=== PATIENT | male | born 1980 | race African-American/Black ===

== ENCOUNTER 2018-06-18 15:53 | Inpatient (IN) | payer OTHER ==
[~2018-06-18] VITALS: Ht 180.3 cm; Wt 94.1 kg
[2018-06-18 15:56] VITALS: Ht 180.3 cm; Wt 94.1 kg
[2018-06-18 16:34] LABS: BASOPHIL % 0.2 % (0-2); PLATELET COUNT 240 x10^3mcL (130-400)
[2018-06-18 16:37] LABS: RED CELL DISTRIBUTION WIDTH 15.6 % (11.5-14.5)
[2018-06-18 17:05] LABS: CALCIUM 8.2 mg/dL (8.5-10.1); CARBON DIOXIDE 23.2 mmol/L (21-32); CREATININE SERUM 1.5 mg/dL (0.7-1.3); POTASSIUM SERUM 4.6 mmol/L (3.5-5.1)
[2018-06-18 17:10] LABS: BILIRUBIN TOTAL 2.1 mg/dL (0.20-1.00); TOTAL PROTEIN, SERUM 6.5 g/dL (6.4-8.2)
[2018-06-18 17:12] LABS: ALBUMIN 2.4 g/dL (3.4-5.0)
[2018-06-18 19:33] LABS: FREE T4 1.12 ng/dL (0.76-1.46); FREE THYROXINE INDEX 2.4 ug/dL (1.4-4.5)
[2018-06-18 19:54] LABS: MAGNESIUM 1.8 mg/dL (1.8-2.4); PHOSPHOROUS 3.6 mg/dL (2.5-4.9)
[2018-06-18 19:55] VITALS: BP 131/93
[2018-06-18 19:57] LABS: CHOLESTEROL/HDL RATIO 3.6; T3 TOTAL 0.63 ng/mL
[2018-06-19 06:15] LABS: BASOPHIL % 0.1 % (0-2); PLATELET COUNT 229 x10^3mcL (130-400)
[2018-06-19 06:23] VITALS: BP 133/83
[2018-06-19 06:39] LABS: CARBON DIOXIDE 23.1 mmol/L (21-32); CHLORIDE SERUM 104 mmol/L (98-107); CREATININE SERUM 1.3 mg/dL (0.7-1.3); GFR1 > 60 mL/min; GLUCOSE SERUM 119 mg/dL (74-106); MAGNESIUM 1.8 mg/dL (1.8-2.4); PHOSPHOROUS 2.9 mg/dL (2.5-4.9); POTASSIUM SERUM 4.2 mmol/L (3.5-5.1); SODIUM SERUM 138 mmol/L (136-145)
[2018-06-19 06:55] LABS: RED CELL DISTRIBUTION WIDTH 14.9 % (11.5-14.5)
[2018-06-19 09:56] VITALS: BP 131/96
[2018-06-19 12:30] VITALS: BP 119/81
[2018-06-19 16:29] VITALS: BP 160/100
[2018-06-19 16:51] VITALS: BP 116/76
[2018-06-19 19:48] VITALS: BP 122/86
[2018-06-20 05:41] VITALS: BP 135/105
[2018-06-20 08:05] VITALS: BP 141/95
[2018-06-20 11:45] VITALS: BP 114/92
[2018-06-20 16:43] VITALS: BP 130/97
[2018-06-20 19:55] VITALS: BP 123/87
[2018-06-21 05:26] VITALS: BP 131/97
[2018-06-21 08:36] VITALS: BP 142/104
[2018-06-21 09:53] LABS: CALCIUM 7.9 mg/dL (8.5-10.1); CARBON DIOXIDE 27.6 mmol/L (21-32); CREATININE SERUM 1.4 mg/dL (0.7-1.3); POTASSIUM SERUM 3.8 mmol/L (3.5-5.1)
[2018-06-21 09:54] LABS: BASOPHIL % 0.3 % (0-2); PLATELET COUNT 254 x10^3mcL (130-400)
[2018-06-21 10:44] LABS: RED CELL DISTRIBUTION WIDTH 15.5 % (11.5-14.5)
[2018-06-21 12:30] VITALS: BP 129/98
[2018-06-21 17:03] VITALS: BP 117/92
[2018-06-21 19:37] VITALS: BP 126/87
[2018-06-22 02:14] LABS: microscopic required? NO
[2018-06-22 02:26] LABS: urine erythrocyte NEGATIVE (NEGATIVE)
[2018-06-22 03:07] LABS: AMPHETAMINE QUAL UR NONE DETECTED (See below)
[2018-06-22 05:58] VITALS: BP 126/86
[2018-06-22 06:21] LABS: BASOPHIL % 0.4 % (0-2); PLATELET COUNT 243 x10^3mcL (130-400)
[2018-06-22 06:37] LABS: CARBON DIOXIDE 27.1 mmol/L (21-32); CHLORIDE SERUM 100 mmol/L (98-107); CREATININE SERUM 1.3 mg/dL (0.7-1.3); GFR1 > 60 mL/min; GLUCOSE SERUM 94 mg/dL (74-106); POTASSIUM SERUM 3.9 mmol/L (3.5-5.1); SODIUM SERUM 135 mmol/L (136-145)
[2018-06-22 06:46] LABS: RED CELL DISTRIBUTION WIDTH 15.6 % (11.5-14.5)
[2018-06-22 09:23] VITALS: BP 146/104
[2018-06-22 12:27] VITALS: BP 124/87
[2018-06-22 17:22] VITALS: BP 117/89
[2018-06-22 20:28] VITALS: BP 123/91
[2018-06-23 05:29] VITALS: BP 129/69
[2018-06-23 06:41] LABS: CARBON DIOXIDE 29.7 mmol/L (21-32); CHLORIDE SERUM 101 mmol/L (98-107); CREATININE SERUM 1.1 mg/dL (0.7-1.3); GFR1 > 60 mL/min; GLUCOSE SERUM 89 mg/dL (74-106); POTASSIUM SERUM 3.7 mmol/L (3.5-5.1); SODIUM SERUM 137 mmol/L (136-145)
[2018-06-23 07:07] LABS: BASOPHIL % 0.5 % (0-2); PLATELET COUNT 270 x10^3mcL (130-400)
[2018-06-23 07:34] LABS: RED CELL DISTRIBUTION WIDTH 15.3 % (11.5-14.5)
[2018-06-23 09:38] VITALS: BP 131/96
[2018-06-23 16:55] VITALS: BP 107/79
[2018-06-23 21:01] VITALS: BP 132/88
[2018-06-24 06:17] VITALS: BP 127/81
[2018-06-24 08:10] VITALS: BP 118/60
[2018-06-24 11:41] VITALS: BP 140/98
[2018-06-24 16:08] VITALS: BP 117/72
[2018-06-24 20:38] VITALS: BP 127/95
[2018-06-25 05:29] VITALS: BP 127/99
[2018-06-25 06:24] LABS: BASOPHIL % 0.4 % (0-2); PLATELET COUNT 323 x10^3mcL (130-400)
[2018-06-25 06:28] LABS: CALCIUM 8.4 mg/dL (8.5-10.1); CARBON DIOXIDE 30.1 mmol/L (21-32); CHLORIDE SERUM 100 mmol/L (98-107); CREATININE SERUM 1.2 mg/dL (0.7-1.3); GFR1 > 60 mL/min; GLUCOSE SERUM 94 mg/dL (74-106); POTASSIUM SERUM 3.8 mmol/L (3.5-5.1); SODIUM SERUM 137 mmol/L (136-145)
[2018-06-25 06:53] LABS: RED CELL DISTRIBUTION WIDTH 15.4 % (11.5-14.5)
[2018-06-25 09:20] VITALS: BP 127/103
[2018-06-25 20:53] VITALS: BP 126/95
[2018-06-26 05:39] VITALS: BP 131/89
[2018-06-26 09:00] VITALS: BP 111/81
== END 2018-06-26 13:25 | disposition left against medical advice (07) | DRG 194 ==
LOC: ED 15:53 → DU 18:12 → MU 06-22 11:41
PROVIDERS: Emergency Medicine; General Practice; ADMIT Family Medicine
DX: I11.0 Hypertensive heart disease with heart failure (principal); N17.0 Acute kidney failure with tubular necrosis; E43 Unspecified severe protein-calorie malnutrition; D68.59 Other primary thrombophilia; E11.65 Type 2 diabetes mellitus with hyperglycemia; R04.2 Hemoptysis; I42.9 Cardiomyopathy, unspecified; K74.60 Unspecified cirrhosis of liver; I50.43 Acute on chronic combined systolic (congestive) and diastolic (congestive) heart failure; I25.10 Atherosclerotic heart disease of native coronary artery without angina pectoris; E02 Subclinical iodine-deficiency hypothyroidism; R74.0 Nonspecific elevation of levels of transaminase and lactic acid dehydrogenase [LDH]; Z59.0 Homelessness; Z68.33 Body mass index [BMI] 33.0-33.9, adult; Z87.891 Personal history of nicotine dependence; Z79.84 Long term (current) use of oral hypoglycemic drugs; Z91.14 Patient's other noncompliance with medication regimen
CPT/HCPCS: 82962; 83880; 84439; 87116; 87206; J1940; J7030; Q0092